=== PATIENT | male | born 1975 | race Caucasian/White ===

== ENCOUNTER → 2016-04-01 | Outpatient (CLI) | payer BC ==
[~2016-04-01] MED LIST: Motrin,Rufen800 MG PO; Orphenadrine C100 MG PO
[2016-04-01 11:04] LABS: BASO % 0.5 % (0.0-1.0); EOS % 0.5 % (1.0-4.0); HEMATOCRIT 43.1 % (42.0-52.0); LYMPH # 1.2 10*3/uL (1.3-4.4); LYMPH % 28.7 % (27.0-41.0); MEAN CELL VOLUME 83.5 fl (80.0-94.0); MEAN CORPUSCULAR HGB 29.1 pg (27.0-31.0); MEAN CORPUSCULAR HGB CONC 34.8 g/dl (33.0-37.0); MEAN PLATELET VOLUME 9.1 fl (9.6-12.3); MONO # 0.7 10*3/uL (0.1-1.0); MONO % 15.2 % (3.0-9.0); NEUT # 2.4 10*3/uL (2.3-7.9); NEUT % 54.9 % (47.0-73.0); PLATELET COUNT AUTOMATED 275 10*3/uL (130-400); RED BLOOD COUNT 5.16 10*6/uL (4.50-5.90); RED CELL DISTRI WIDTH 12.6 % (0-14.5); WHITE BLOOD COUNT 4.3 10*3/uL (4.8-10.8)
[2016-04-01 11:36] LABS: ALBUMIN 3.7 gm/dl (3.1-4.5); ALKALINE PHOSPHATASE 92 U/L (45-117); BILIRUBIN, TOTAL 0.4 mg/dl (0.2-1.0); BUN 14 mg/dl (7-24); CARBON DIOXIDE 28 mmol/L (21-32); CHLORIDE 104 mmol/L (98-107); CHOLESTEROL 223 mg/dL (<200); EST GLOM FILT AFRICAN AMERICAN > 60 ml/min; GLUCOSE 87 mg/dL (65-99); HDL CHOLESTEROL 44 mg/dl (40-60); LDL CHOLESTEROL 132 mg/dL (9-159); POTASSIUM 4.1 mmol/L (3.5-5.1); SGOT/AST 22 IU/L (3-35); SGPT/ALT 48 U/L (12-78); SODIUM 139 mmol/L (136-145); TOTAL PROTEIN 7.8 gm/dL (6.4-8.2); TRIGLYCERIDES 237 mg/dl (<150); VLDL CHOLESTEROL 47 mg/dL (6-40)
== END | disposition home or self-care (01) ==
LOC: LAB 10:41
PROVIDERS: Family Medicine
DX: E78.00 Pure hypercholesterolemia, unspecified (principal); R50.9 Fever, unspecified; R53.83 Other fatigue; E55.9 Vitamin D deficiency, unspecified

== ENCOUNTER → 2016-08-31 | Outpatient (CLI) | payer BC | END | disposition home or self-care (01) | LOC: RAD 11:02 | DX: M47.22 Other spondylosis with radiculopathy, cervical region (principal); M79.602 Pain in left arm; R20.0 Anesthesia of skin ==

== ENCOUNTER → 2018-09-05 | Outpatient (CLI) | payer BC ==
[2018-09-05 11:18] LABS: HEMATOCRIT 42.7 % (42.0-52.0); HEMOGLOBIN 14.3 g/dl (14.0-18.0); MEAN CORPUSCULAR HGB 29.1 pg (27.0-31.0); MEAN CORPUSCULAR HGB CONC 33.5 g/dl (33.0-37.0); MEAN PLATELET VOLUME 9.7 fl (9.6-12.3); RED BLOOD COUNT 4.91 10*6/uL (4.50-5.90); RED CELL DISTRI WIDTH 12.8 % (0-14.5); WHITE BLOOD COUNT 9.5 10*3/uL (4.8-10.8)
[2018-09-05 11:46] LABS: ALBUMIN 3.5 gm/dl (3.1-4.5); ALKALINE PHOSPHATASE 95 U/L (45-117); BUN 11 mg/dl (7-24); CHLORIDE 105 mmol/L (98-107); CREATININE 1.09 mg/dL (0.70-1.30); POTASSIUM 3.8 mmol/L (3.5-5.1); SGOT/AST 13 IU/L (3-35); SGPT/ALT 29 U/L (12-78); SODIUM 140 mmol/L (136-145); TOTAL PROTEIN 7.9 gm/dL (6.4-8.2)
== END | disposition home or self-care (01) ==
LOC: LAB 10:50
PROVIDERS: Family Medicine
DX: J18.0 Bronchopneumonia, unspecified organism (principal)

== ENCOUNTER → 2020-02-12 | Outpatient (CLI) | payer BC | END | disposition home or self-care (01) | LOC: COVID19 10:32 | PROVIDERS: ATTEND Family Medicine | DX: Z20.828 Contact with and (suspected) exposure to other viral communicable diseases (principal) ==

== ENCOUNTER 2022-08-09 17:08 | Emergency (ER) | payer BC ==
[~2022-08-09] VITALS: Ht 185.4 cm; Wt 117.9 kg
== END 2022-08-09 19:53 | disposition home or self-care (01) ==
LOC: ED 17:08
DX: S93.104A Unspecified dislocation of right toe(s), initial encounter (principal); W51.XXXA Accidental striking against or bumped into by another person, initial encounter; Y93.89 Activity, other specified; Y92.89 Other specified places as the place of occurrence of the external cause; Y99.8 Other external cause status